=== PATIENT | male | born 1960 | race Caucasian/White ===

== ENCOUNTER 2018-11-07 12:38 | Inpatient (IN) | payer OTHER ==
[~2018-11-07] VITALS: Ht 172.7 cm; Wt 147.2 kg
[~2018-11-07 12:38] MED LIST: ASPI81EC; CEPH500 PO; SIMV40; VYTORIN
[2018-11-07] MEDS ORDERED: ESCI20 PO (12:52)
[2018-11-07] MEDS ORDERED: JARDIANCE25 MG PO (12:53)
[2018-11-07] MEDS ORDERED: EZET10 PO (12:53)
[2018-11-07] MEDS ORDERED: INSULANPEN (12:54)
[2018-11-07] MEDS ORDERED: METF500 PO (12:55)
[2018-11-07] MEDS ORDERED: ZESTORETIC 20-121 EA (12:55)
[2018-11-07] MEDS ORDERED: QUET25 PO (12:55)
[2018-11-07] MEDS ORDERED: TRULICITY1.5 MG/0.5 SQ (12:56)
[2018-11-07 13:08] LABS: BASOPHILS ABSOLUTE AUTO 0.03 K/mm3 (0.00-0.23); BASOPHILS PERCENT AUTO 0 % (0-2); EOSINOPHILS ABSOLUTE AUTO 0.22 K/mm3 (0.00-0.68); EOSINOPHILS PERCENT AUTO 2 % (0-6); Hematocrit 44.5 % (37.0-53.0); Hemoglobin 14.5 g/dL (13.5-17.5); IMMATURE GRAN ABSOLUTE AUTO 0.07 K/mm3 (0.00-0.10); IMMATURE GRAN PERCENT AUTO 1 % (0-1); LYMPHOCYTES ABSOLUTE AUTO 2.75 K/mm3 (0.84-5.20); LYMPHOCYTES PERCENT AUTO 26 % (21-46); MONOCYTES ABSOLUTE AUTO 0.84 K/mm3 (0.16-1.47); MONOCYTES PERCENT AUTO 8 % (4-13); Mean Corpuscular HGB Conc 32.6 g/dL (31.5-36.5); Mean Corpuscular Volume 95 fL (80-100); Mean Platelet Volume 10.1 fL (9.1-12.4); NEUTROPHILS ABSOLUTE AUTO 6.84 K/mm3 (1.96-9.15); NEUTROPHILS PERCENT AUTO 64 % (41-73); Platelet Count 264 K/mm3 (150-400); RDW Coefficient Variation 14.4 % (11.7-14.2); RDW Standard Deviation 50.5 fL (35.1-46.3); Red Blood Cell Count 4.67 M/mm3 (4.30-5.90); White Blood Cell Count 10.75 K/mm3 (4.00-11.30)
[2018-11-07 13:19] LABS: Alanine Aminotransfer (ALT/SGP 34 U/L (12-78); Albumin, Blood 3.6 g/dL (3.4-5.0); Albumin/Globulin Ratio 0.9 (0.8-1.8); Alk Phos 85 U/L (50-136); Anion Gap 5 mmol/L (6-16); Aspartate Aminotrans (AST/SGOT 22 U/L (12-37); Bilirubin, Total 0.4 mg/dL (0.1-1.0); Blood Urea Nitrogen 16 mg/dL (8-24); Bun/Creatinine Ratio 15.8 (12.0-20.0); CO2, Blood 29 mmol/L (21-32); Calcium, Blood 9.2 mg/dL (8.5-10.1); Chloride, Blood 106 mmol/L (98-108); Creatinine, Blood 1.01 mg/dL (0.60-1.20); Glomerular Filtration Rate >60 (60-); Glucose, Blood 121 mg/dL (70-99); Potassium, Blood 3.9 mmol/L (3.5-5.5); Sodium, Blood 140 mmol/L (136-145); Total Protein, Blood 7.6 g/dL (6.4-8.2); Troponin I 0.181 ng/mL (0.000-0.040)
[2018-11-07 15:14] LABS: International Normalized Ratio 0.98; Prothrombin Time Results 10.4 Sec (9.7-11.5)
--- NOTE | 2018-11-07 17:15 | NUR ---
ADMISSION: REPORT RECEIVED FROM KRISTINE Stevens RN IN ED. PT ARRIVED TO ICU-11 VIA GURNEY AT APPROX 1615. HE WAS ABLE TO STAND/AMBULATE TO BED W/O DIFFICULTY. HE DENIES PAIN OR DISCOMFORT, STS SOB HAS BEEN PERSISTANT FOR 4 DAYS & IS WORSE W/ EXERTION. 3L NC IN PLACE W/ O2 SATS > 92%. HE IS A&O, PLEASANT & COOPERATIVE. MONITOR SHOWS SR W/ PVCs, HR 60s. BP STABLE. BT x4, VOIDS W/O DIFFICULTY. PT DENIES ANY GI/ COMPLAINTS. SKIN OVERALL CDI. WILL CLARIFY ORDERS FOR HEPARIN W/ DR. PRETTY WHEN SHE ROUNDS. THERE WAS CONCERN THAT HEPARIN ORDERS SHOULD BE VERIFIED W/ DR. RUTLEDGE PRIOR TO INITIATION, BUT BECAUSE HE IS IN A PROCEDURE & CANNOT VERIFY THE ORDERS AT THIS TIME, WILL ATTEMPT CLARIFICATION W/ DR. PRETTY. ADMISSION IS NOW COMPLETE, HOME MEDS RECONCILLED. PT's TO BRING PT's HOME CPAP IN TO BE SETUP FOR THE EVENING. WILL CONTINUE TO MONITOR & UPDATE NEEDED.
--- NOTE | 2018-11-07 17:47 | NUR ---
DR. PRETTY: PROVIDER AT BEDSIDE TO SEE PT. STS HEPARIN DRIP SHOULD BE STARTED NOW. LANTUS DOSE ADJUSTED TO MATCH PT's HOME DOSING WELL. WILL CONTINUE TO MONITOR & UPDATE NEEDED.
--- NOTE | 2018-11-07 18:35 | NUR ---
DR. RUTLEDGE / SHIFT SUMMARY: PROVIDER AT BEDSIDE TO SEE PT. PT HAS BEEN CONSENTED FOR PROCEDURE. NO ACUTE CHANGES SINCE ADMISSION NOTE. PT REMAINS A&O, FREE OF PAIN OR DISCOMFORT AT THIS TIME. RESPIRATORY STATUS UNCHANGED. WILL CONTINUE TO MONITOR & REPORT OFF TO ONCOMING RN.
--- NOTE | 2018-11-07 19:10 | NUR ---
PT TO WINDOW MAKER W HC STAFF BY BED.
--- NOTE | 2018-11-07 21:30 | NUR ---
BACK FROM PROMOS EXECUTIVE PRODUCER: ALERT, DENIES PAIN, BILAT FEMORAL SITES SOFT & NO BLEEDING, CATHETERS SECURELY TAPED IN PLACE. EKOS WITH TPA INFUS 0.5MG/HR EACH SITE WELL HEPARIN 3CC/HR, AND NS 35CC/HR. REVIEWED PT POSITIONING REQUIREMENTS & PT VERBALIZES UNDERSTANDING. 02 2LNC, PT HAS BROUGHT PTS CPAP UNIT & RT WILL SET UP FOR PT. CALL LIGHT IN REACH, WILL CONT TO MONITOR.
--- NOTE | 2018-11-08 | NUR ---
BILAT FEMORAL SITES CONT WO BLEEDING. PT REFUSED LANTUS EARLIER HE DID NOT HAVE DINNER, BS 92, PT ALSO REQ LEXAPRO TO BE DOSED AT HS WHICH IS HIS REGULAR SCHEDULE AND THEN ASKED FOR ONLY 10 MG DOSE. CONT WO VOID.
[2018-11-08 02:37] LABS: BASOPHILS ABSOLUTE AUTO 0.02 K/mm3 (0.00-0.23); BASOPHILS PERCENT AUTO 0 % (0-2); EOSINOPHILS ABSOLUTE AUTO 0.18 K/mm3 (0.00-0.68); EOSINOPHILS PERCENT AUTO 2 % (0-6); Hemoglobin 13.5 g/dL (13.5-17.5); IMMATURE GRAN ABSOLUTE AUTO 0.03 K/mm3 (0.00-0.10); IMMATURE GRAN PERCENT AUTO 0 % (0-1); LYMPHOCYTES ABSOLUTE AUTO 1.96 K/mm3 (0.84-5.20); LYMPHOCYTES PERCENT AUTO 23 % (21-46); MONOCYTES ABSOLUTE AUTO 0.73 K/mm3 (0.16-1.47); MONOCYTES PERCENT AUTO 8 % (4-13); Mean Corpuscular HGB Conc 32.9 g/dL (31.5-36.5); Mean Corpuscular Volume 94 fL (80-100); Mean Platelet Volume 9.7 fL (9.1-12.4); NEUTROPHILS ABSOLUTE AUTO 5.79 K/mm3 (1.96-9.15); NEUTROPHILS PERCENT AUTO 67 % (41-73); Platelet Count 212 K/mm3 (150-400); RDW Coefficient Variation 14.4 % (11.7-14.2); RDW Standard Deviation 50.1 fL (35.1-46.3); Red Blood Cell Count 4.36 M/mm3 (4.30-5.90); White Blood Cell Count 8.71 K/mm3 (4.00-11.30)
[2018-11-08 02:54] LABS: Alanine Aminotransfer (ALT/SGP 30 U/L (12-78); Albumin, Blood 3.1 g/dL (3.4-5.0); Albumin/Globulin Ratio 0.9 (0.8-1.8); Alk Phos 68 U/L (50-136); Anion Gap 8 mmol/L (6-16); Aspartate Aminotrans (AST/SGOT 21 U/L (12-37); Bilirubin, Total 0.4 mg/dL (0.1-1.0); Blood Urea Nitrogen 13 mg/dL (8-24); Bun/Creatinine Ratio 16.1 (12.0-20.0); CO2, Blood 24 mmol/L (21-32); Calcium, Blood 8.1 mg/dL (8.5-10.1); Chloride, Blood 108 mmol/L (98-108); Creatinine, Blood 0.81 mg/dL (0.60-1.20); Globulin, Blood 3.5 g/dL (2.2-4.0); Glomerular Filtration Rate >60 (60-); Glucose, Blood 127 mg/dL (70-99); Sodium, Blood 140 mmol/L (136-145); Total Protein, Blood 6.6 g/dL (6.4-8.2)
--- NOTE | 2018-11-08 05:45 | NUR ---
NO CHANGES TO FEMORAL SITES. PT VOIDED X1. CO LOW BACK PAIN & MED W HYDROCODONE X1. VSS, CONT SB/SR W OCCAS PVC. WILL REPORT TO DAYSHIFT.
--- NOTE | 2018-11-08 10:11 | NUR ---
BEGINNING OF SHIFT Assumed care at 0700 with Anabelle DAVIS. Pt wearing home CPAP. When not on CPAP, pt on room air with O2 sats 90% or greater. Bilat femoral venous sites with alteplase and heparin infusing per orders. Sites covered with tegaderm CHG. Free of hematoma, leakage, or bruising. Color, sensation, capillary refill, and distal pulses equal BLE. Bed in reverse trendelenberg. Pt requests food and drink. Educated that pt is to remain NPO due to procedural sedation as he is planned to go to wastewater analyst lab analyst this AM. Pt's spouse in room; updated on plan of care.
--- NOTE | 2018-11-08 12:11 | NUR ---
PT LEFT FOR GEOGRAPHIC INFORMATION SYSTEM ANALYST AT 1157
--- NOTE | 2018-11-08 13:02 | NUR ---
PT BACK FROM TRAINING OFFICER. BILATERAL GROIN ACCESS SITES ARE STABLE. PULSES ARE PALPABLE. EKOS WAS DISCONTINUED WHILE IN TRAINING OFFICER. O2 SATURATION 94% ON ROOM AIR.
--- NOTE | 2018-11-08 13:12 | NUR ---
SPOKE WITH DR. RUTLEDGE REGARDING ORDERS. HE ORDERED FOR VENOUS DOPPLER STUDIES AT THIS TIME. HE STATED HE WILL COME BY AND SEE PATIENT AND WILL PLACE IN ORDERS.
--- NOTE | 2018-11-08 13:18 | NUR ---
RETURN FROM SINGLE CORNER CUTTER Bilateral femoral vein access sites are dressed with John Patch and tegaderm. Dressing C/D/I. Sites free of hematoma, brusing, or drainage. Color, sensation, distal pulses and capillary refill equal BLE. Pt eating lunch.
--- NOTE | 2018-11-08 15:15 | NUR ---
CALL PLACED TO DR WEAVER Called Dr Weaver to inquire about activity restrictions and anticoagulation. Orders given for Xarelto. Provider states he will be in to see patient.
--- NOTE | 2018-11-08 15:45 | NUR ---
DR RUTLEDGE IN TO SEE PATIENT States pt is cleared to go home from IR standpoint.
--- NOTE | 2018-11-08 16:30 | NUR ---
CALL PLACED TO DR MCCLAIN This RN placed call to Dr Mcclain to update on pt and notify that Dr Weaver stated pt could go home.
--- NOTE | 2018-11-08 17:05 | NUR ---
OXYGEN SpO2 sats 86-87%. Pt placed on 1 LPM NC. Pt sat up on edge of bed. IS provided to patient. Using IS helped SpO2 increase to 90% or greater. This RN amulated pt around unit. SpO2 remained at 90% or greater with ambulation, however pt stated he was feeling "winded" and needed to take a break. Upon returning back to room and sitting in recliner, SpO2 decreased to 86% and after 3-4 minutes, pt was placed on 1 LPM NC because he had not recovered. Dr Guillaume in to see patient at 1700. Provider states plan for pt to be observed over night. Pt okay to be PCU status. No changes to femoral venous sites.
--- NOTE | 2018-11-08 18:22 | NUR ---
SUMMARY Pt remains on 1 LPM NC. SpO2 90% or greater. Independent in room. Pt sitting up in chair. Lungs clear, dim in bases. Sinus rhythm, rate 72. John patches to bilateral femoral venous sites remain C/D/I; no hematoma or bruising noted. Color, sensation, capillary refill, distal pulses remain equal BLE.
--- NOTE | 2018-11-08 21:30 | NUR ---
[place] of Care: Care assumed at 1900hr. Patient alert and oriented x4 sitting upright in chair visiting with his . Denies pain, discomfort, SOB, or dyspnea. VSS, O2-93-96% on 1L/NC, and O2-90-96% on RA. Patient ambulated throughout unit at approx 2130hr, with one person stand-by assist. Patient tolerated ambulation (approx 300ft) without difficulty. Continued to deny dyspnea/SOB, O2-89-94% on RA. Peripheral IV x1 to lt AC patent and intact. Voiding using urinal without difficulty. Bilateral groin sites dressed with John dressing and tegaderm. Both groin sites appear WNL, no s/s of bleeding or hematoma. Placed on home CPAP for sleeping, tolerating without difficulty. Call light in reach, makes needs known. Will continue to monitor for pain, safety, comfort.
--- NOTE | 2018-11-09 06:00 | NUR ---
Shift Summary: Patient slept well throughout entire shift. Continues to deny pain, discomfort, SOB, or dyspnea. VSS, O2-93-96% on RA, or CPAP throughout shift. Voiding using urinal in room without difficulty. Continues to tolerate ambulation without difficulty. Bilateral groin sites remain wnl, no s/s of bleeding or hematoma. Call light in reach, makes needs known, but required little assistance from staff throughout shift. Will continue to monitor until report to day shift RN.
--- NOTE | 2018-11-09 08:37 | NUR ---
ASSUMED CARE PT. ALERT AND ORIENTED THIS AM, AWAKENS EASILY TO VERBAL STIMULI. PT ON HOME CPAP AT NIGHT, AND ON RA DURING THE DAY. PT. DENIES ANY PAIN OR DISCOMFORT THIS AM. PT. DENIES ANY SOB THIS AM. PT. STAND BY ASSIST WITH CORDS AND LINES. PT. VSS AT THIS TIME. NADN. CALL LIGHT IN REACH.
[2018-11-09] MEDS ORDERED: XARELTO15 MG PO (12:45)
--- NOTE | 2018-11-09 13:04 | NUR ---
DISCHARGE PT. DISCHARGED AT THIS TIME. PT MEDICATION CALLED INTO [facility] PER REQUEST, PER PHARMACY THEY WILL HAVE MEDICATION READY FOR PT THIS AFTERNOON. PT. VSS UPON DISCHARGE. EDUCATED ON FEMORAL ACCESS AND IVC FILTER. PT GIVEN IVC FILTER CARD AND EDUCATED ON PLACING IN PT. [place]ALLET. PT. HAD NO FURTHER QUESTIONS. IV REMOVED. PT. REQUESTED TO AMBULATE TO DOOR. ENCOURAGED TO RETURN FOR WORSENING SYMPTOMS.
== END 2018-11-09 13:04 | disposition home or self-care (01) | DRG 176 ==
LOC: ER 12:38 → ICUW 15:15 → ICUE 11-08 22:30
PROVIDERS: Emergency Medicine; ADMIT Internal Medicine
PROC: B31T1ZZ Fluoroscopy of Left Pulmonary Artery using Low Osmolar Contrast (ICD-10-PCS; principal; 2018-11-07)
PROC: B31S1ZZ Fluoroscopy of Right Pulmonary Artery using Low Osmolar Contrast (ICD-10-PCS; 2018-11-07)
PROC: 3E06317 Introduction of Other Thrombolytic into Central Artery, Percutaneous Approach (ICD-10-PCS; 2018-11-07)
DX: I26.99 Other pulmonary embolism without acute cor pulmonale (principal); Z68.43 Body mass index [BMI] 50.0-59.9, adult; I82.412 Acute embolism and thrombosis of left femoral vein; I82.432 Acute embolism and thrombosis of left popliteal vein; I82.442 Acute embolism and thrombosis of left tibial vein; I82.492 Acute embolism and thrombosis of other specified deep vein of left lower extremity; I82.541 Chronic embolism and thrombosis of right tibial vein; E11.9 Type 2 diabetes mellitus without complications; E78.5 Hyperlipidemia, unspecified; I10 Essential (primary) hypertension; F32.9 Major depressive disorder, single episode, unspecified; G47.33 Obstructive sleep apnea (adult) (pediatric); E66.9 Obesity, unspecified; Z79.4 Long term (current) use of insulin
CPT/HCPCS: 36015; 36415; 37191; 37211; 37214; 71260; 75743; 75825; 80053; 82947; 84484; 85025; 85384; 85610; 85730; 93005; 93010; 93970; 96360-59; 99152; 99153; 99285-25; A9270-GY; C1757; C1769; C1880; C1894; J1644; J2250; J2997; J3010; J7030; J7040; Q9967

== ENCOUNTER 2018-11-23 05:45 | Day surgery (SDC) | payer OTHER ==
[~2018-11-23] VITALS: Ht 172.7 cm; Wt 148.0 kg
[~2018-11-23 05:45] MED LIST changes: +ESCI20 PO; +EZET10 PO; +INSULANPEN; +JARDIANCE25 MG PO; +METF500 PO; +QUET25 PO; +TRULICITY1.5 MG/0.5 SQ; +XARELTO15 MG PO; +ZESTORETIC 20-121 EA
--- NOTE | 2018-11-23 11:46 | NUR ---
Medicaitons Gave pt a GI cocktail. Viscous lidocaine and Maalox. Pt has had ongoing chest pains that are spasms going on and off with a peak pain of 7/10. These pains seem to come on more often after pt eats solid food.
--- NOTE | 2018-11-23 13:50 | NUR ---
PT VOMITED THREE TIMES. ZOFRAN ADMINSTERED PER DR. GUPTA ORDER.
--- NOTE | 2018-11-23 14:35 | NUR ---
PT STILL BOUTING WITH NASEA. TOTAL EMISIS OUT 125 CC'S. ZOFRAN ADMINISTERED IV PER DR. RUTLEDGE.
--- NOTE | 2018-11-23 19:24 | NUR ---
ASSUMED CARE OF PT AT APPROXIMATELY 1615 PT ALERT AND ORIENTED. VS STABLE. HR NSR WITH PVC. PT COMPLAINS OF NAUSEA ON AND OFF. PT COMPLAINS OF CHEST PAIN THAT IS EXACERBATED WITH EATING. PT ABLE TO EAT DINNER WITH OUT EMESIS. LEFT POPLITEAL ACCESS SITE HAS DRIED BLOOD NOTED THAT IS UNCHANGED SINCE ARRIVAL TO UNIT. REPORT GIVEN TO ENTRY LEVEL TRUCK DRIVER RN.
--- NOTE | 2018-11-23 21:43 | NUR ---
ASSUMED CARE OF PATIENT AT APPROXIMATELY 1900 FROM ADAN Vila RN. PATIENT UP TO BATHROOM WITH SBA DURING BEDSIDE REPORT. PATIENT ALERT AND ORIENTED X4; NOW INDEPENDENT IN ROOM; SITE WNL; SOME RED DISCHARGE NOTED AT SHIFT CHANGE; NO S/S OF ACTIVE BLEEDING, HEMATOMA OR BRUISING NOTED. PATIENT REPORTS NON TENDER. PATIENT REPORTS HE HAS INTERMITTENT STABBING CHEST PAIN THAT WAS 5/10 UPON ARRIVAL TO UNIT NOW ABOUT A 3 WHEN IT COMES; CURRENTLY PAIN FREE. PATIENT DENIES NAUSEA AND DIZZINESS. PATIENT REPORTS HE WAS ABLE TO EAT DINNER; DRINKING PLENTY OF FLUIDS; URINE IS DARK AND FROTHY; REPORTED EXPECTED AFTER PROCEDURE TODAY. PATIENT REPORTS CHRONIC N/T TO FEET. PIV S/L. NSR ON TELE; OXYGEN SATURATION ABOVE 90% ON ROOM AIR; USES HOME CPAP AT NIGHT. PATIENT CURRENTLY RESTING IN BED; CALL LIGHT IN REACH; BED IN LOWEST POSISTION; WILL CONTINUE TO MONITOR AND ASSESS UNTIL END OF SHIFT.
--- NOTE | 2018-11-24 05:56 | NUR ---
PATIENT SLEPT ABOUT EIGHT HOURS LAST NIGHT; INDEPENDENT IN ROOM TO BATHROOM; SLEPT WITH HOME CPAP ON. NO ACUTE CHANGES TO REPORT. VSS. NO FURTHER COMPLAINTS OF PAIN. WILL CONTINUE TO MONITOR AND ASSESS UNTIL END OF SHIFT.
--- NOTE | 2018-11-24 11:55 | NUR ---
DISCHARGE PT A&OX3. PT DENIES ANY PAIN AT THIS TIME AND SYMPTOMS HAVE RESOLVED FROM YESTERDAY. IV DC'D WITH CANULA IN TACT. PT UP TO DRESS SELF WITH EASE. DISCHRGE PAPERWORK GONE OVER WITH PT AND SPOUSE. PT AND SPOUSE VERBALLY STATED THE UNDERSTANDING OF THE DISCHARGE EDUCATION GIVEN AND DENIED ANY QUESTIONS AT THIS TIME. LLE SITE CDI-NO HEMATOMA NOTED. THIS NURSE WILL PLACE CALL DR. PARK OFFICE ON TUESDAY TO DISCUSS A FOLLOW-UP APPOINTMENT FOR PATIENT. PT AMBULATED TO CAR WITH SPOUSE.
== END 2018-11-24 12:05 | disposition home or self-care (01) ==
LOC: MHTC 05:45 → PCU 16:00 → MHTC 11-24 12:05
DX: I82.432 Acute embolism and thrombosis of left popliteal vein (principal); I10 Essential (primary) hypertension; E11.9 Type 2 diabetes mellitus without complications; F32.9 Major depressive disorder, single episode, unspecified; E78.5 Hyperlipidemia, unspecified; G47.33 Obstructive sleep apnea (adult) (pediatric); E66.9 Obesity, unspecified; Z99.89 Dependence on other enabling machines and devices; Z88.1 Allergy status to other antibiotic agents; Z79.899 Other long term (current) drug therapy; Z79.4 Long term (current) use of insulin
CPT/HCPCS: 36011; 37187; 75820; 76937; 82947; 93005; 93010; 94762; 99152; 99153; C1757; C1769; C1887; C1894; J1644; J2250; J2405; J2997; J3010; J7030; Q9967

== ENCOUNTER → 2019-04-19 | Outpatient (CLI) | payer OTHER | END | disposition home or self-care (01) | LOC: LAB EV 23:15 | DX: R19.7 Diarrhea, unspecified (principal) | CPT/HCPCS: 87015; 87045; 87046; 87177; 87205; 87209; 87899 ==

== ENCOUNTER 2019-06-15 07:24 | Day surgery (SDC) | payer OTHER ==
[~2019-06-15] VITALS: Ht 172.7 cm; Wt 152.2 kg
[~2019-06-15 07:24] MED LIST changes: +Glucophage1000 MG PO
[2019-06-15] MEDS ORDERED: Prozac40 MG PO (07:54)
== END 2019-06-15 12:44 | disposition home or self-care (01) ==
LOC: ORSCSDS 07:24
PROVIDERS: Podiatrist Foot & Ankle Surgery
PROC: 0MQR0ZZ Repair Left Ankle Bursa and Ligament, Open Approach (ICD-10-PCS; principal; 2019-06-15 08:45)
PROC: 0LXW0ZZ Transfer Left Foot Tendon, Open Approach (ICD-10-PCS; principal; 2019-06-15 08:45)
PROC: 0LQT0ZZ Repair Left Ankle Tendon, Open Approach (ICD-10-PCS; principal; 2019-06-15 08:45)
DX: S96.912A Strain of unspecified muscle and tendon at ankle and foot level, left foot, initial encounter (principal); M76.822 Posterior tibial tendinitis, left leg; M25.572 Pain in left ankle and joints of left foot; S93.402A Sprain of unspecified ligament of left ankle, initial encounter; G47.33 Obstructive sleep apnea (adult) (pediatric); I10 Essential (primary) hypertension; E11.9 Type 2 diabetes mellitus without complications; Z86.718 Personal history of other venous thrombosis and embolism; Z79.01 Long term (current) use of anticoagulants; Z79.4 Long term (current) use of insulin; Z79.84 Long term (current) use of oral hypoglycemic drugs; Z79.899 Other long term (current) drug therapy
CPT/HCPCS: 82947; C1713; J0171; J0690; J1100; J2405; J2704; J3010; J7120

== ENCOUNTER → 2020-05-14 | Outpatient (CLI) | payer OTHER ==
[~2020-05-14] MED LIST changes: +Prozac40 MG PO
[2020-05-16 13:17] LABS: CORONAVIRUS (COVID19) CSH-NRL Negative (Negative)
== END | disposition home or self-care (01) ==
LOC: LAB EV 11:21 → LAB SHORT 11:21
PROVIDERS: Physician Assistant
DX: Z76.89 Persons encountering health services in other specified circumstances (principal); Z20.822 Contact with and (suspected) exposure to COVID-19
CPT/HCPCS: U0003

== ENCOUNTER 2021-02-06 06:11 | Day surgery (SDC) | payer OTHER ==
[~2021-02-06] VITALS: Ht 172.7 cm; Wt 145.5 kg
[~2021-02-06 06:11] MED LIST changes: +EZETIMIBE SIMV; +FURO20; +NOVOLOG100 UNIT/3; +POTA10T
[2021-02-06] MEDS ORDERED: TRULICITY1.5 MG/0.1 SC (07:08)
[2021-02-06] MEDS ORDERED: XARELTO20 M1 PO (07:10)
[2021-02-06] MEDS ORDERED: GABA100 PO (07:10)
[2021-02-06] MEDS ORDERED: BASAGLAR K100 UNIT/3 SC (07:11)
[2021-02-06] MEDS ORDERED: FINA5 PO (07:11)
[2021-02-06] MEDS ORDERED: METFORMIN HCL500 M2 PO (07:14)
[2021-02-06] MEDS ORDERED: LISI20 PO (07:14)
[2021-02-06] MEDS ORDERED: TRAM50 PO (07:14)
[2021-02-06] MEDS ORDERED: VITAMIN D32000 UNI1 PO (07:15)
[2021-02-06 07:35] LABS: SARS-Cov-2 (COVID-19) PCR, MMC NEGATIVE (NEGATIVE)
--- NOTE | 2021-02-06 07:47 | NUR ---
02/06/21 0747 Nicolette Cherry (Olivia CASE DELAYED INTO OR D/T PENDING COVID TEST.
--- NOTE | 2021-02-06 08:00 | NUR ---
02/06/21 0800 Markie Light BUPIVACAINE 0.5% 150 ML MIXED W/ EPI 0.15 ML PER ORDER TO MAKE BUPIVACAINE 0.5% 1:200,000 FOR INJECTION AT OPSITE BY DR GONZALEZ. 30 MLS INJECTED FOR PAIN CONTROL & BLEEDING.
--- NOTE | 2021-02-06 09:54 | NUR ---
02/06/21 0954 DEENA THAO STATES I CAN'T GO HOME IN PAIN.
== END 2021-02-06 11:40 | disposition home or self-care (01) ==
LOC: ORSCSDS 06:11
PROVIDERS: Podiatrist Foot & Ankle Surgery
PROC: 0L8N0ZZ Division of Right Lower Leg Tendon, Open Approach (ICD-10-PCS; principal; 2021-02-06 07:30)
PROC: 0LMV0ZZ Reattachment of Right Foot Tendon, Open Approach (ICD-10-PCS; principal; 2021-02-06 07:30)
PROC: 0LXV0ZZ Transfer Right Foot Tendon, Open Approach (ICD-10-PCS; principal; 2021-02-06 07:30)
DX: M24.571 Contracture, right ankle (principal); M76.821 Posterior tibial tendinitis, right leg; G47.33 Obstructive sleep apnea (adult) (pediatric); I10 Essential (primary) hypertension; E11.9 Type 2 diabetes mellitus without complications; Z79.4 Long term (current) use of insulin; Z86.718 Personal history of other venous thrombosis and embolism; Z79.01 Long term (current) use of anticoagulants; Z79.899 Other long term (current) drug therapy
CPT/HCPCS: 82947; A9270; C1713; J0171; J0690; J1100; J1885; J2250; J2405; J2704; J3010; J7120; U0004